=== PATIENT | female | born 1960 | race Caucasian/White ===

== ENCOUNTER 2017-10-23 16:18 | Emergency (ER) | payer MEDICARE ==
[2017-10-23 16:57] VITALS: BP 140/74
--- NOTE | 2017-10-23 17:41 | RAD ---
INDICATION: Left shoulder injury. TECHNIQUE: 4 views of the left shoulder were obtained. FINDINGS: The bones are in normal alignment. No fracture is seen. Joint spaces appear maintained. IMPRESSION: NO EVIDENCE OF FRACTURE.
--- NOTE | 2017-10-23 17:41 | RAD ---
INDICATION: Left elbow injury. TECHNIQUE: 4 views of the left elbow were obtained. FINDINGS: The bones are in normal alignment. No joint effusion or fracture is seen. Joint spaces appear maintained. IMPRESSION: NO EVIDENCE FOR FRACTURE.
--- NOTE | 2017-10-23 17:44 | RAD ---
INDICATION: Left wrist injury. TECHNIQUE: 3 views of the left wrist were obtained. FINDINGS: There is mild diffuse soft tissue swelling. There is a small bony ossicle adjacent to the ulnar styloid process. No acute fracture is seen. IMPRESSION: SOFT TISSUE SWELLING, NO FRACTURE IS SEEN. IF THE PATIENT'S SYMPTOMS PERSIST RECOMMEND FOLLOW-UP IMAGING.
--- NOTE | 2017-10-23 18:23 | UC ---
Shoulder Pain HPI - HPI Summary HPI Summary: FALL YESTERDAY ONTO LEFT SIDE. PAIN IN LEFT SHOULDER, LEFT ELBOW, SOMETIMES HAS SHARP PAIN THAT RADIATES TO LEFT THUMB. NO NECK INJURY. NO NECK PAIN. NO BRUISING. - History of Current Complaint Chief Complaint: UCUpperExtremity Stated Complaint: LEFT ARM INJ Time Seen by Provider: 10/23/17 16:54 Hx Obtained From: Patient Onset/Duration: Sudden Onset, Lasting Days Timing: Days Severity Initially: Moderate Severity Currently: Moderate Location Of Pain: Is Discrete @ - LEFT SHOULDER/ELBOW, Radiates To - LEFT THUMB Pain Intensity: 10 Pain Scale Used: 0-10 Numeric Character: Dull, Aching, Spasmodic Aggravating Factor(s): Movement, Lifting, Flexion, Internal Rotation, External Rotation Associated Signs And Symptoms: Positive: Negative Related History: Dominant Hand Right - Risk Factors Non-Orthopedic Risk Factor: Negative DVT Risk Factors: Negative Septic Arthritis Risk Factor: Negative - Allergies/Home Medications Allergies/Adverse Reactions: Allergies Allergy/AdvReac Type Severity Reaction Status Date / Time Bee Venom Allergy Anaphylatic Verified 10/23/17 16:45 Shock Morphine Allergy Difficulty Verified 10/23/17 16:45 Breathing Home Medications: Home Medications Albuterol HFA INHALER* [Ventolin HFA Inhaler*] 2 puff INH Q6H PRN 10/23/17 [ History Confirmed 10/23/17] Apixaban* [Eliquis*] 5 mg PO DAILY 10/23/17 [History Confirmed 10/23/17] Cholecalciferol [Vitamin D3] 5,000 unit PO DAILY 10/23/17 [History Confirmed 10/28] DULoxetine DR CAP* [Cymbalta CAP*] 60 mg PO DAILY 10/23/17 [History Confirmed ] Diazepam TAB(*) [Valium TAB(*)] 10 mg PO QID 10/23/17 [History Confirmed ] Fluticasone-Salmeterol 500-50* [Advair Diskus 500-50*] 1 puff INH BID 10/23/17 [ History Confirmed 10/23/17] Gabapentin CAP(*) [Neurontin 300 CAP(*)] 1,200 mg PO QID 10/23/17 [History Confirmed 10/23/17] Omeprazole CAP* [Prilosec CAP* 20 MG] 20 mg PO DAILY 10/23/17 [History Confirmed 10/23/17] Pregabalin CAP(*) [Lyrica CAP(*)] 100 mg PO TID 10/23/17 [History Confirmed 10/28] Propranolol TAB* [Inderal TAB*] 40 mg PO DAILY 10/23/17 [History Confirmed 10/23] Tiotropium CAP.INH* [Spiriva CAP.INH*] 1 cap.inh INH DAILY 10/23/17 [History Confirmed 10/23/17] Topiramate [Topamax 100 mg tab] 100 mg PO BID 10/23/17 [History Confirmed ] celeCOXIB CAP* [CeleBREX CAP*] 100 mg PO DAILY 10/23/17 [History Confirmed 10/23] PMH/Surg Hx/FS Hx/Imm Hx Previously Healthy: Yes - Surgical History Surgical History: Yes Surgery Procedure, Year, and Place: Lumbar back surgery ([place] j in back). x3 c section - Family History Known Family History: Negative: Other - NO JOINT LAXITY - Social History Occupation: Employed Full-time Lives: With Family Alcohol Use: Rare Substance Use Type: Marijuana Smoking Status (MU): Heavy Every Day Tobacco Smoker Amount Used/How Often: 1 ppd Length of Time of Smoking/Using Tobacco: about 45 years Cessation Counseling: Patient Advised to Stop Review of Systems Constitutional: Negative Skin: Negative Eyes: Negative ENT: Negative Respiratory: Negative Cardiovascular: Negative Gastrointestinal: Negative Genitourinary: Negative Motor: Negative Neurovascular: Negative Musculoskeletal: Arthralgia, Myalgia Neurological: Paresthesia - PAIN RADIATING TO LEFT THUMB Psychological: Negative Is Patient Immunocompromised?: No All Other Systems Reviewed And Are Negative: Yes Physical Exam Triage Information Reviewed: Yes Appearance: No Pain Distress, Well-Nourished, Pain Distress Vital Signs: Initial Vital Signs Temp 97.9 F 10/23/17 16:38 Pulse 64 10/23/17 16:38 Resp 14 10/23/17 16:38 BP 140/74 10/23/17 16:38 Pulse Ox 97 10/23/17 16:38 Vital Signs Reviewed: Yes Eye Exam: Normal ENT Exam: Normal Dental Exam: Normal Neck exam: Normal Neck: Positive: Supple, Nontender, No Lymphadenopathy Respiratory Exam: Normal Respiratory: Positive: Chest non-tender, Lungs clear, Normal breath sounds, No respiratory distress, No accessory muscle use Cardiovascular Exam: Normal Cardiovascular: Positive: RRR, No Murmur, Pulses Normal, Brisk Capillary Refill Abdominal Exam: Normal Musculoskeletal: Positive: No Edema, Strength Limited @ - LEFT SHOULDER LEFT ELBOW, ROM Limited @ - LEFT SHOULDER Neurological Exam: Normal Psychological Exam: Normal Skin Exam: Normal Diagnostics - Radiology No standard instances Xray Interpretation: Positive (See Comments) - Interpreted by radiologist, reviewed by KIKO. Interpretation : NO EVIDENCE FOR ELBOW FRACTURE. NO EVIDENCE OF FRACTURE OF LEFT SHOULDER. LEFT WRIST : SOFT TISSUE SWELLING, NO FRACTURE IS SEEN. IF THE PATIENT'S SYMPTOMS PERSIST RECOMMEND FOLLOW-UP IMAGING. Radiology Interpretation Completed By: ED Physician, Radiologist Shoulder Course/Dx - Differential Dx/Diagnosis Differential Diagnosis/HQI/PQRI: Arthritis, Sprain, Strain Provider Diagnoses: LEFT SHOULDER SPRAIN, LEFT ELBOW STRAIN, FOREARM PAIN. Discharge - Discharge Plan Condition: Stable Disposition: HOME Patient Education Materials: Wrist Injury (ED), Shoulder Sprain (ED), Arm Pain (ED) Referrals: Won Sifuentes MD [Medical Doctor] - Silvina Zelaya PA [Primary Care Provider] - Additional Instructions: PHYSICAL THERAPY REFERRAL: You have been prescribed physical therapy. Treatments may include stretching, exercise, application of heat or cold, and other modalities. After an injury, PT can reduce swelling and pain. In recovery, PT is used to restore mobility and strength. Your specific treatment goals are: Reduction of Swelling (EGS, US, ice as needed) __x___ Pain Reduction (EGS, US, ice as needed) ____x_ TENS Pack Fitting and Instruction Wound Hydrotherapy ___x__ Preservation of Mobility ___x__ Confucianism of Mobility ___x__ Strength Confucianism ___x__ Work or Sports Hardening This instruction sheet also serves as your PHYSICAL THERAPY REFERRAL! Please take it with you to the therapist, so he/she will be aware of your diagnosis and treatment plan. You may see the physical therapist of your choice for these treatments, but may wish to check with your insurance to be sure the provider you select is covered. It's important to see the doctor to whom you have been referred for follow up.
== END 2017-10-23 18:09 | disposition home or self-care (01) ==
LOC: UCCORT 16:18
DX: S43.402A Unspecified sprain of left shoulder joint, initial encounter (principal); S53.402A Unspecified sprain of left elbow, initial encounter; M79.632 Pain in left forearm; X58.XXXA Exposure to other specified factors, initial encounter; Y92.9 Unspecified place or not applicable; Z88.5 Allergy status to narcotic agent; F17.210 Nicotine dependence, cigarettes, uncomplicated
CPT/HCPCS: 99203; G0463